=== PATIENT | female | born 1995 | race Caucasian/White ===

== ENCOUNTER 2020-07-27 10:04 | Emergency (ER) | payer OTHER ==
[~2020-07-27] VITALS: Ht 167.6 cm; Wt 68.0 kg
[2020-07-27] MEDS ORDERED: AIRBORNE EFFER1 EACH PO (14:26)
[2020-07-27] MEDS ORDERED: NITROFURANTOIN100 MG PO (14:26)
== END 2020-07-27 14:47 | disposition home or self-care (01) ==
LOC: ER 10:04
DX: B34.9 Viral infection, unspecified (principal); N39.0 Urinary tract infection, site not specified; R50.9 Fever, unspecified; Z20.828 Contact with and (suspected) exposure to other viral communicable diseases

== ENCOUNTER 2020-07-27 16:14 | Inpatient (IN) | payer OTHER ==
[~2020-07-27] VITALS: Ht 167.6 cm; Wt 67.6 kg
[~2020-07-27 16:14] MED LIST: AIRBORNE EFFER1 EACH PO; NITROFURANTOIN100 MG PO
== END 2020-08-03 19:44 | disposition home or self-care (01) | DRG 689 ==
LOC: ER 16:14 → MEDJ 20:00 → ICU 20:00 → ICU-2 20:00 → ICU 07-28 04:56 → MEDJ 07-29 16:55
PROVIDERS: ADMIT Internal Medicine; ATTEND Internal Medicine
PROC: 4A033R1 Measurement of Arterial Saturation, Peripheral, Percutaneous Approach (ICD-10-PCS; principal; 2020-07-27)
PROC: BW21ZZZ Computerized Tomography (CT Scan) of Abdomen and Pelvis (ICD-10-PCS; 2020-07-27)
PROC: BW40ZZZ Ultrasonography of Abdomen (ICD-10-PCS; 2020-08-02)
DX: N39.0 Urinary tract infection, site not specified (principal); R65.20 Severe sepsis without septic shock; D72.818 Other decreased white blood cell count; D69.49 Other primary thrombocytopenia; Z20.828 Contact with and (suspected) exposure to other viral communicable diseases